=== PATIENT | female | born 2000 ===

== ENCOUNTER → 2021-03-19 | Outpatient (CLI) | payer OTHER | END | disposition home or self-care (01) | LOC: RAD 14:49 | DX: M62.830 Muscle spasm of back (principal); M99.01 Segmental and somatic dysfunction of cervical region; M54.2 Cervicalgia; M99.02 Segmental and somatic dysfunction of thoracic region; M54.6 Pain in thoracic spine; M99.03 Segmental and somatic dysfunction of lumbar region; M54.5 Low back pain ==